=== PATIENT | male | born 1990 | race Caucasian/White ===

== ENCOUNTER 2020-03-26 23:32 | Observation (INO) ==
[2020-03-26] MEDS ORDERED: Tdap (Boostrix) Vaccine 0.5 ML SYRINGE IM ONE (23:33)
[2020-03-27] MEDS ORDERED: *HR* LORazepam 1 MG TABLET PO PRN (00:34)
[2020-03-27] MEDS ORDERED: Mag Hydrox/Al Hydrox/Simeth 30 ML UDC PO PRN (00:34)
[2020-03-27] MEDS ORDERED: haloperidoL 5 MG TABLET PO PRN (00:34)
[2020-03-27] MEDS ORDERED: *HR* LORazepam 2 MG/ML VIAL IM PRN (00:34)
[2020-03-27] MEDS ORDERED: MOM Conc 10 ML UD.LIQ PO PRN (00:34)
[2020-03-27] MEDS ORDERED: traZODone 50 MG TABLET PO PRN (00:34)
[2020-03-27] MEDS ORDERED: Acetaminophen 325 MG TABLET PO PRN (00:34)
[2020-03-27] MEDS ORDERED: Haloperidol Lactate 5 MG/ML VIAL IM PRN (00:34)
[2020-03-27 10:17] VITALS: BP 129/81
== END 2020-03-27 13:15 | disposition home or self-care (01) ==
LOC: EMEROOARM 23:32 → INTOOBSV 03-27 00:24 → 1ANU 03-27 00:24
PROVIDERS: ADMIT Psychiatry & Neurology Psychiatry; ATTEND Psychiatry & Neurology Psychiatry